=== PATIENT | female | born 1950 | race Hispanic/Latino ===

== ENCOUNTER → 2024-03-29 | Outpatient (CLI) | payer OTHER ==
[~2024-03-29] MED LIST: IOHEXOL 350 MG/ML 100ML INFUS..BTL IV ONE
== END | disposition home or self-care (01) ==
LOC: RAH 11:22
PROVIDERS: ATTEND Student in an Organized Health Care Education/Training Program
DX: I25.42 Coronary artery dissection (principal); R07.9 Chest pain, unspecified
CPT/HCPCS: 75574; Q9967